=== PATIENT | female | born 1985 | race Caucasian/White ===

== ENCOUNTER 2017-02-07 22:26 | Emergency (ER) | payer MEDICAID ==
[2017-02-08 02:03] LABS: BASOPHILS 0.2 % (0.0-2.0); HEMATOCRIT 41.5 % (36.0-48.0); HEMOGLOBIN 13.5 g/dL (12-16); IMMATURE GRANULOCYTES 0.2 % (0-5); LYMPHOCYTES 14.8 % (15-50); MCH 27.1 pg (26.0-34.0); MCHC 32.5 g/dL (31.0-37.0); MCV 83.2 fL (80.0-100.0); MONOCYTES 3.8 % (2-11); PLATELET COUNT 264 10x3/uL (130-400); RBC 4.99 10x6/uL (4.00-5.40); RDW 14.5 % (11.5-14.5); WBC 8.7 10x3/uL (4.8-10.8)
[2017-02-08 02:09] LABS: APPEARANCE TURBID (CLEAR); BILIRUBIN NEGATIVE (NEGATIVE); COLOR YELLOW (YELLOW); GLUCOSE NEGATIVE (NEGATIVE); KETONE NEGATIVE (NEGATIVE); LEUKOCYTE ESTERASE TRACE (NEGATIVE); NITRITE NEGATIVE (NEGATIVE); PROTEIN TRACE mg/dL (NEGATIVE); SPECIFIC GRAVITY 1.025 (1.005-1.020); UROBILINOGEN NORMAL (NORMAL)
[2017-02-08 02:17] LABS: ALBUMIN 3.8 g/dL (3.4-5.0); ALKALINE PHOSPHATASE 56 U/L (46-116); ALT (SGPT) 34 U/L (10-68); AMYLASE - SERUM 44 U/L (25-115); BILIRUBIN - TOTAL 0.48 mg/dL (0.2-1.3); CALC OSMOLALITY 283 mosm/kg (275-300); CALCIUM 8.8 mg/dL (8.5-10.1); CARBON DIOXIDE 28.5 mmol/L (21.0-32.0); CHLORIDE - SERUM 103 mmol/L (98-107); CREATININE - SERUM 0.8 mg/dL (0.6-1.3); GLUCOSE 153 mg/dL (74-106); LIPASE 103 U/L (73-393); POTASSIUM - SERUM 3.7 mmol/L (3.5-5.1); PROTEIN - SERUM 7.8 g/dL (6.4-8.2); SODIUM 141 mmol/L (136-145); UREA NITROGEN 13 mg/dL (7-18); eGFR NON AFRICAN AMERICAN 90 mL/min (90-120)
[2017-02-08 02:18] LABS: RED CELLS - URINE RARE /hpf (0-5); WHITE CELLS - URINE 0-5 /hpf (0-5)
[2017-02-08 02:19] LABS: AMORPHOUS SEDIMENT >1+ /lpf (NONE SEEN); BACTERIA MODERATE /hpf (NONE SEEN); EPITHELIAL CELLS 0-5 /hpf (0-5); GRANULAR CAST 0-5 /lpf (NONE SEEN); HYALINE CAST RARE /lpf (NONE SEEN); MUCUS <1+ /lpf (NONE SEEN)
== END 2017-02-08 02:44 | disposition home or self-care (01) ==
LOC: D.ER 22:26
PROVIDERS: Family Medicine
DX: K52.9 Noninfective gastroenteritis and colitis, unspecified (principal)

== ENCOUNTER → 2018-05-08 08:28 | Day surgery (SDC) | payer MEDICAID ==
[~2018-05-08] VITALS: Ht 160 cm; Wt 136.1 kg
--- NOTE | ~2018-05-08 | HP ---
PATIENT: AILEEN GARCIA MEDICAL RECORD: [id number] ACCOUNT: [id number] LOCATION:[facility] : 87 ADMISSION DATE: 05/08/18 HISTORY AND PHYSICAL EXAMINATION HISTORY OF PRESENT ILLNESS: Aileen is 33 years old. She has been having problems with chronic pharyngitis. She is being admitted for tonsillectomy. PAST MEDICAL HISTORY: Eustachian tube dysfunction. PAST SURGICAL HISTORY: Includes , carpal tunnel surgery. CURRENT MEDICATIONS: Zyrtec and Zantac. ALLERGIES: No known drug allergies. PHYSICAL EXAMINATION: GENERAL: She is healthy-appearing. FACE: Normal, symmetric. No lesions. EYES: Sclerae and conjunctivae are normal. EARS: Right ear is normal. The left ear has some retraction and inflammation. ORAL CAVITY AND OROPHARYNX: She has got 3+ cryptic tonsils. NECK: Normal. CHEST: Clear. CARDIOVASCULAR: Regular rate and rhythm, no murmur. EXTREMITIES: Normal. IMPRESSION: Chronic pharyngitis. PLAN: Tonsillectomy. TRANSINT:[id number] Voice Confirmation ID: [id number] DOCUMENT ID: [id number] RANDI GUERRERO MD at 1802 CC: [id number] DICTATION DATE: 05/04/18 1521 FIELD PRODUCER: 05/04/18 1602 [facility] [address] [place] [address]
--- NOTE | ~2018-05-08 | OP ---
PATIENT NAME: TALA GARCIA MEDICAL RECORD: [id number] :89 [facility] ADMISS[facility] DATE: SURGEON: RANDI GUERRERO MD DATE OF OPERATION: 05/08/2018 PREOPERATIVE DIAGNOSIS: Chronic tonsillitis. POSTOPERATIVE DIAGNOSIS: Chronic tonsillitis. PROCEDURE: Tonsillectomy. SURGEON: Randi Guerrero MD ANESTHESIA: General orotracheal. BLOOD LOSS: Less than 5 cc. SPECIMENS: Right and left tonsil. COMPLICATIONS: None. DISPOSITION: Recovery stable. PROCEDURE NOTE: She was brought to the operating room and placed in supine position, sedated and intubated by anesthesia. The eyes were taped and table was turned 90 degrees. Head drapes were applied and she was positioned for tonsillectomy. Using a headlight, a Kalani-Robin mouth gag was carefully inserted and elevated on towel on her chest. The palate was examined and palpated. It was normal. A red rubber catheter was placed to the right side of the nose and the pharynx was grasped with tonsil clamp to retract the soft palate. Using a mirror, the nasopharynx was examined. It was narrow. There was no real significant adenoid tissue. The choanae and eustachian orifices were normal bilaterally. The red rubber catheter was let down and removed. The right tonsil was grasped at superior pole with a straight Allis clamp. Spatula tip cautery on a setting of 10 was used to dissect out the tonsil along its capsule, preserving the anterior tonsillar pillar. The left tonsil was removed in the same fashion. Then, both sides of the nose were irrigated with saline. The pharynx was suctioned. Tonsillar fossae were agitated. Suction cautery on a setting of 20 was used to control minimal oozing. With the field clean and dry, the Kalani-Robin mouth gag was let down and removed. She was awakened, extubated, and transported to recovery in good condition. No complications. TRANSINT:[id number] Voice Confirmation ID: [id number] DOCUMENT ID: [id number] RANDI GUERRERO MD at 1711 CC: [id number] DICTATION DATE: 05/08/18 124 FAMILY LIVING EDUCATOR: 05/08/18 1410 [facility] 05/08/18 [facility] [address] [facility] [place] [id number]
[~2018-05-08 08:28] MED LIST: PRISTIQ50 MG PO; ZYRTEC10 MG PO
[2018-05-08 09:10] LABS: HEMATOCRIT 38.7 % (36.0-48.0); HEMOGLOBIN 12.7 g/dL (12-16); MCH 27.8 pg (26.0-34.0); MCHC 32.8 g/dL (31.0-37.0); MCV 84.7 fL (80.0-100.0); MEAN PLATELET VOLUME 9.3 fL (7.4-10.4); RBC 4.57 10x6/uL (4.00-5.40); RDW 14.6 % (11.5-14.5); WBC 5.7 10x3/uL (4.8-10.8)
[2018-05-08 09:34] VITALS: BP 155/97; Ht 160 cm; Wt 136.1 kg
== END | disposition home or self-care (01) ==
LOC: D.OPS 08:28 → D.PAN 10:45 → D.OPS 10:45
PROVIDERS: Anesthesiology
DX: J35.01 Chronic tonsillitis (principal); Z01.812 Encounter for preprocedural laboratory examination